=== PATIENT | male | born 1935 | race Asian ===

== ENCOUNTER 2020-02-26 03:49 | Emergency (ER) | payer MEDICARE, OTHER ==
[~2020-02-26] VITALS: Ht 167.6 cm; Wt 68.0 kg
[2020-02-26] MEDS ORDERED: MONTELUKAST SOD10 MG ORAL (03:59)
[2020-02-26] MEDS ORDERED: ISOSORBIDE MONO30 M1 PO (03:59)
[2020-02-26] MEDS ORDERED: METOPROLOL TART25 MG ORAL (03:59)
[2020-02-26] MEDS ORDERED: MICARDIS80 MG ORAL (03:59)
[2020-02-26] MEDS ORDERED: ATORVASTATIN CA20 MG ORAL (03:59)
[2020-02-26] MEDS ORDERED: METFORMIN HCL500 M1 ORAL (03:59)
[2020-02-26] MEDS ORDERED: BACLOFEN10 MG ORAL (03:59)
[2020-02-26] MEDS ORDERED: PROSCAR5 MG ORAL (03:59)
[2020-02-26] MEDS ORDERED: CELEBREX200 MG ORAL (03:59)
[2020-02-26] MEDS ORDERED: FLUTICASONE PRO16 G1 NASAL (03:59)
[2020-02-26] MEDS ORDERED: AMLODIPINE BESYL5 MG ORAL (03:59)
[2020-02-26] MEDS ORDERED: FLOMAX0.4 MG ORAL (03:59)
[2020-02-26] MEDS ORDERED: CIPROFLOXACIN500 M2 ORAL (03:59)
[2020-02-26] MEDS ORDERED: JANUVIA25 MG ORAL (03:59)
[2020-02-26] MEDS ORDERED: HYDROCHLOROTH12.5 MG ORAL (03:59)
--- NOTE | 2020-02-26 04:09 | Emergency Room Report ---
History of Present Illness General Chief Complaint: Back Pain-No Injury Source: Patient, Medical Record, EMS Present Illness HPI This is an 84-year-old [place] male with a history of diabetes and high blood pressure. He presents with chief complaint of right flank pain. This been on and off for 2 months. Pain was severe prior to arrival. Now better. Pain is in the right groin area and going up to the right flank area. No hematuria. No nausea no vomiting. No fever chills. Nothing made it better. Nothing made it worse. Denies any trauma. 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 Patient History Past Medical History: see triage record, old chart reviewed, DM, HTN Past Surgical History: none Pertinent Family History: none Social History: Denies: smoking Immunizations: other Reviewed Nursing Documentation: PMH: Agreed; PSxH: Agreed Nursing Documentation-PMH Past Medical History: No History, Except For Hx Hypertension: Yes Hx Diabetes: Yes Review of Systems Eye: Denies: eye pain, blurred vision ENT: Denies: ear pain, nose congestion, throat swelling Respiratory: Denies: cough, shortness of breath Cardiovascular: Denies: chest pain, palpitations Gastrointestinal: Reports: abdominal pain; Denies: diarrhea, nausea, vomiting Musculoskeletal: Denies: back pain, joint pain Skin: Denies: rash Neurological: Denies: headache, numbness Endocrine: Denies: increased thirst, increased urine Hematologic/Lymphatic: Denies: easy bruising All Other Systems: negative except mentioned in HPI Physical Exam Vital Signs Date Time Temp Pulse Resp B/P (MAP) Pulse Ox O2 Delivery O2 Flow Rate FiO2 02/26/20 03:51 98.8 84 20 123/84 (97) 99 Room Air Vitals normal Sp02 EP Interpretation: reviewed, normal General Appearance: well appearing, no apparent distress, alert Head: normocephalic, atraumatic Eyes: bilateral eye PERRL, bilateral eye EOMI ENT: hearing grossly normal, normal pharynx Neck: full range of motion, supple, no meningismus Respiratory: chest non-tender, lungs clear, normal breath sounds Cardiovascular #1: regular rate, rhythm, no murmur Gastrointestinal: normal bowel sounds, no mass, no organomegaly, no bruit, non- distended, tenderness - Right groin/lower quadrant tenderness Musculoskeletal: back normal, normal range of motion, gait/station normal Psychiatric: mood/affect normal Medical Decision Making Diagnostic Impression: Primary Impression: Right ureteral stone ER Course Patient with intermittent right flank pain for 1 to 2 months. Had acute pain tonight. CT scan showed a large 1 cm right proximal ureteral stone. Pain is well controlled now. No evidence of infection but I will put him on antibiotics because of the perinephric stranding. Will discharge home. CT/MRI/US Diagnostic Results CT/MRI/US Diagnostic Results : Imaging Test Ordered: CT abdomen pelvis Impression Read by radiologist. Obstructing 1 cm right proximal ureter stone with mild fullness of the right collecting system. Suspicious for mild forniceal rupture. Last Vital Signs Date Time Temp Pulse Resp B/P (MAP) Pulse Ox O2 Delivery O2 Flow Rate FiO2 02/26/20 03:51 98.8 84 20 123/84 (97) 99 Room Air Status: improved Disposition: HOME, SELF-CARE Condition: Stable Scripts Acetaminophen With Codeine (T#3) (TYLENOL #3 TAB*) Y Tab 1 TAB ORAL Q8H PRN for For Pain, #20 TAB Prov: Yunior Rice MD 02/26/20 Nitrofurantoin Monohyd/M-Cryst (Nitrofurantoin Ada-Mcr 100 mg) 100 Mg Capsule 100 MG ORAL Q12H, #14 CAP Prov: Yunior Rice MD 02/26/20 Additional Instructions: Follow-up with your primary care doctor in 3 to 5 days. You will need referral to see a urologist. Bring the CAT scan report with you to your doctor appointment. Return if worse. Yunior Rice MD Feb 26, 2020 04:09
[2020-02-26] MEDS ORDERED: Ketorolac 30mg Inj IV ONE (04:15)
[2020-02-26 04:28] LABS: APPEARANCE,URINE CLEAR; BASOPHILS % (AUTO) 0.5 % (0.0-2.0); BILIRUBIN, URINE NEGATIVE (NEGATIVE); COLOR,URINE PALE YELLOW; EOSINOPHILS % (AUTO) 0.8 % (0.0-3.0); GLUCOSE, URINE (UA) 4+ (NEGATIVE); HEMATOCRIT 45.6 % (42.0-52.0); KETONES,URINE 2+ (NEGATIVE); LEUKOCYTE ESTERASE ,URINE NEGATIVE (NEGATIVE); LYMPHOCYTES % (AUTO) 12.4 % (20.0-45.0); MEAN CORPUSCULAR VOLUME 92 FL (80-99); NEUTROPHILS % (AUTO) 81.2 % (45.0-75.0); NITRITE,URINE NEGATIVE (NEGATIVE); PH,URINE 6 (4.5-8.0); PLATELET COUNT 304 K/UL (150-450); PROTEIN,URINE 1+ (NEGATIVE); RED BLOOD COUNT 4.98 M/UL (4.70-6.10); RED CELL DISTRIBUTION WIDTH 12.2 % (11.6-14.8); UROBILINOGEN,URINE NORMAL MG/DL (0.0-1.0); WHITE BLOOD COUNT 12.5 K/UL (4.8-10.8)
[2020-02-26 04:34] VITALS: BP 123/84
[2020-02-26 04:37] LABS: ALANINE AMINOTRANSFERASE 36 U/L (12-78); ALBUMIN 3.8 G/DL (3.4-5.0); ALBUMIN/GLOBULIN RATIO 0.9 (1.0-2.7); ALKALINE PHOSPHATASE 86 U/L (46-116); ASPARTATE AMINO TRANSFERASE 27 U/L (15-37); BILIRUBIN,TOTAL 0.5 MG/DL (0.2-1.0); BLOOD UREA NITROGEN 19 mg/dL (7-18); CALCIUM 8.8 MG/DL (8.5-10.1); CARBON DIOXIDE 24 MMOL/L (21-32); CHLORIDE 102 MMOL/L (98-107); CREATININE 1.7 MG/DL (0.55-1.30); POTASSIUM 3.9 MMOL/L (3.5-5.1); SODIUM 137 MMOL/L (136-145)
--- NOTE | 2020-02-26 05:52 | Diagnostic Imaging Report ---
EXAM: CT Abdomen and Pelvis Without Intravenous Contrast CLINICAL HISTORY: ABD PAIN TECHNIQUE: Axial computed tomography images of the abdomen and pelvis without intravenous contrast. CTDI is 6.60 mGy and DLP is 364.90 mGy-cm. One or more of the following dose reduction techniques were used: automated exposure control, adjustment of the mA and/or kV according to patient size, use of iterative reconstruction technique. COMPARISON: No relevant prior studies available. FINDINGS: Lung bases: Dependent atelectasis. Heart: The heart size is mild to prominent. Aortic valve and coronary artery calcifications. ABDOMEN: Liver: Unremarkable. Gallbladder and bile ducts: Cholecystectomy. No ductal dilation. Pancreas: Mild atrophy of the pancreas. No ductal dilation. Spleen: Unremarkable. No splenomegaly. Adrenals: Unremarkable. No mass. Kidneys and ureters: Obstructing 1 cm right proximal ureter calculus with associated mild fullness of the right collecting system. Asymmetric enlargement of the right kidney with mild-moderate perinephric fluid, suspicious for mild forniceal rupture. No left-sided hydronephrosis or nephrolithiasis. Stomach and bowel: Diverticulosis, without acute diverticulitis. No obstruction. PELVIS: Appendix: Normal appendix. Bladder: Unremarkable. No stones. Reproductive: Unremarkable as visualized. ABDOMEN and PELVIS: Intraperitoneal space: Unremarkable. No free air. No significant fluid collection. Bones/joints: Degenerative changes of the spine. No acute fracture. No dislocation. Soft tissues: Unremarkable. Vasculature: Atherosclerotic calcifications of the aorta. No abdominal aortic aneurysm. Lymph nodes: Unremarkable. No enlarged lymph nodes. IMPRESSION: Obstructing 1 cm right proximal ureter calculus with associated mild fullness of the right collecting system. Asymmetric enlargement of the right kidney with mild-moderate perinephric fluid, suspicious for mild forniceal rupture. Cholecystectomy. Diverticulosis, without acute diverticulitis. No small bowel obstruction. Normal appendix.
[2020-02-26] MEDS ORDERED: ACETAMINOPHEN-1 EAC1 ORAL (05:56)
[2020-02-26] MEDS ORDERED: MACROBID100 MG ORAL (05:56)
[2020-02-26 05:58] VITALS: BP 129/76
== END 2020-02-26 06:03 | disposition home or self-care (01) ==
LOC: EDBD 03:49 → EMR 04:12
DX: N20.1 Calculus of ureter (principal); I10 Essential (primary) hypertension; E11.9 Type 2 diabetes mellitus without complications
CPT/HCPCS: 36415; 74176; 80053; 81003; 83690; 85025; 96374; 99284; J1885